=== PATIENT | female | born 1990 | race Caucasian/White ===

== ENCOUNTER 2021-02-21 22:10 | Emergency (ER) | payer OTHER ==
[~2021-02-21] VITALS: Ht 160 cm; Wt 77.1 kg
--- NOTE | 2021-02-21 22:15 | NUR ---
PT BIBSELF C/O RT THUMB LAC WHILE CLEANING KITCHEN KNIVES AT WORK. PT AAOX4 BREATHING EVENLY AND UNLABORED. PT ATTACHED TO MONITOR AND POX. WILL CONTINUE TO MONITOR.
[2021-02-21] MEDS ORDERED: LIDOCAINE 2% 20 ML MDV ONE (22:26)
--- NOTE | 2021-02-21 22:45 | NUR ---
AT BEDSIDE FOR PROCEDURE
[2021-02-21] MEDS ORDERED: TDAP [DIPH/PERTUSSIS/TET] 0.5 ML VIAL IM ONE ×2 (23:00→23:09)
--- NOTE | 2021-02-21 23:11 | NUR ---
Patient discharged to home in stable condition. Written and verbal after care instructions given. Patient verbalizes understanding of instruction. PT ambulatory with a steady gait
[2021-02-21 23:17] VITALS: BP 120/69
== END 2021-02-21 23:11 | disposition home or self-care (01) ==
LOC: ER 22:17
DX: S61.011A Laceration without foreign body of right thumb without damage to nail, initial encounter (principal); W26.0XXA Contact with knife, initial encounter; Y93.89 Activity, other specified; Y92.090 Kitchen in other non-institutional residence as the place of occurrence of the external cause; Y99.8 Other external cause status
CPT/HCPCS: 12002; 90471; 90715; 99283; J3490